=== PATIENT | female | born 1945 | race Caucasian/White ===

== ENCOUNTER → 2019-05-22 | Outpatient (CLI) | payer MEDICARE ==
[~2019-05-22] MED LIST: AMLO25TA PO; AMLO5TAB6 PO; ASPI81TA26 PO; BUPIVACAINE HCL 0.5% 10 ML VIAL As Ordered ONE; ESTR2TAB2 PO; HEPARIN 1,000 UNITS/ML 10ML VIAL (FOR RADIOLOGY& DIALYSIS ONLY) As Ordered ONE; ISOVUE-300 61% 50ML VIAL (Q9967) As Ordered ONE; LIDOCAINE 2% MDV 20 ML VIAL As Ordered ONE; LORA-243 PO; MEDR5TAB3 PO; MIDAZOLAM INJ 2 MG/2 ML VIAL (J2250) As Ordered ONE; PROTAMINE SULF INJ 50 MG/5 ML VIAL (J2720) As Ordered ONE; diphenhydrAMINE INJ 50MG/ML VIAL (J1200) As Ordered ONE; fentaNYL 100 MCG/2 ML INJECTION (J3010) As Ordered ONE; methylPREDNISolone INJ 125 MG/2 ML VIAL (J2930) As Ordered ONE
[2019-05-22 08:36] LABS: HEMATOCRIT 38.4 % (36.0-47.0); HEMOGLOBIN 13.2 g/dl (12.0-15.5); MEAN CORPUSCULAR HEMOGLOBIN 35.5 pg (27.0-33.0); MEAN CORPUSCULAR HGB CONC 34.4 g/dl (32.0-36.5); MEAN CORPUSCULAR VOLUME 103.2 fl (80.0-96.0); PLATELET COUNT, AUTOMATED 209 10^3/uL (150-450); RED BLOOD COUNT 3.72 10^6/uL (4.00-5.40); WHITE BLOOD COUNT 8.9 10^3/uL (4.0-10.0)
[2019-05-22 08:57] LABS: BLOOD UREA NITROGEN 11 MG/DL (7-18); CARBON DIOXIDE LEVEL 27 MEQ/L (21-32); CHLORIDE LEVEL 104 MEQ/L (98-107); CREATININE FOR GFR 0.85 MG/DL (0.55-1.30); GLOMERULAR FILTRATION RATE > 60.0 (>39); GLUCOSE, FASTING 105 MG/DL (70-100); POTASSIUM SERUM 3.5 MEQ/L (3.5-5.1); SODIUM LEVEL 138 MEQ/L (136-145)
[2019-05-22 15:32] VITALS: BP 146/66
--- NOTE | 2019-06-08 09:13 | REPIR ---
DATE OF PROCEDURE: 05/22/2019 ATTENDING SURGEON: Dr. Susan Thompson JAVA XML DEVELOPER: Pamela Burr and [employer] PREOPERATIVE DIAGNOSES: Bilateral lower extremity claudication, history of tobacco use. POSTOPERATIVE DIAGNOSES: Bilateral lower extremity claudication, history of tobacco use. PROCEDURE: Aortogram, iliofemoral angiogram, selective right common femoral artery catheter placement with right lower extremity angiogram, left common iliac artery angioplasty with 7 x 4 balloon, right external iliac artery angioplasty with 7 x 4 balloon, right common femoral artery angioplasty with 5 x 200 balloon, right superficial femoral artery angioplasty with 5 x 200 balloon, right popliteal artery angioplasty with 5 x 200 balloon, bilateral femoral cannulation, right common iliac artery angioplasty and stent with a 10 x 20 Wallstent postdilated with a 7 x 4 balloon. Left common iliac artery angioplasty and stent with a 10 x 39 Wallstent postdilated 7 x 4 balloon, aortic angioplasty with two 7 x 4 balloons, bilateral 6-Barbadian Mynx closure devices. INDICATION: The patient is a 74-year-old female with a history of tobacco use and bilateral lower extremity claudication. The patient will undergo angiography with possible angioplasty, stent and/or atherectomy. Risks, benefits and alternative treatment options were discussed with the patient. ANESTHESIA: Local with sedation with 2 mg Versed, 100 mcg of fentanyl and 40 mL of 2% lidocaine mixed with 0.5% Marcaine. COMPLICATIONS: None. DRAINS: None. SPECIMENS: None. PROCEDURE: The patient was taken to the angiography suite, placed supine on the angiography room table and then prepped and draped in a standard surgical fashion. The left common femoral artery was cannulated with a micropuncture needle. 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 The bilateral common iliac arteries then underwent angioplasty with residual stenosis remaining, after which they were angioplasty and stented with 10 mm stents, postdilated with 7 mm balloons. The right lower extremity showed severe disease in the common femoral, superficial femoral and popliteal arteries and these were angioplastied with a 5 x 200 balloon. Completion aortogram and runoff showed resolution of the stenosis with excellent flow bilaterally. Catheters and wires were removed. The sheaths were removed and bilateral 6-Barbadian Mynx closure devices were placed at the arteriotomy sites with an additional 10 minutes of adjunctive pressure applied for hemostasis. Dressings were then applied. The patient tolerated procedure well. All instrument, sponge, needle counts were correct at the end the case. There were no complications. Dr. Thompson was present for and directed the entire case. The patient was transferred to the holding area and subsequently discharged in stable condition.
== END ==
LOC: M IRPRO 07:43
PROVIDERS: ATTEND Surgery Vascular Surgery
DX: I70.213 Atherosclerosis of native arteries of extremities with intermittent claudication, bilateral legs (principal); I10 Essential (primary) hypertension; K21.9 Gastro-esophageal reflux disease without esophagitis; Z87.891 Personal history of nicotine dependence
CPT/HCPCS: 37221; 37224; 75716; 80048; 85027; C1725; C1760; C1769; C1876; C1887; C1894; J1200; J2250; J2720; J2930; J3010; Q9967

== ENCOUNTER → 2019-07-03 | Outpatient (CLI) | payer MEDICARE ==
[~2019-07-03] MED LIST changes: -BUPIVACAINE HCL 0.5% 10 ML VIAL As Ordered ONE; -HEPARIN 1,000 UNITS/ML 10ML VIAL (FOR RADIOLOGY& DIALYSIS ONLY) As Ordered ONE; -ISOVUE-300 61% 50ML VIAL (Q9967) As Ordered ONE; -LIDOCAINE 2% MDV 20 ML VIAL As Ordered ONE; -MIDAZOLAM INJ 2 MG/2 ML VIAL (J2250) As Ordered ONE; -PROTAMINE SULF INJ 50 MG/5 ML VIAL (J2720) As Ordered ONE; -diphenhydrAMINE INJ 50MG/ML VIAL (J1200) As Ordered ONE; -fentaNYL 100 MCG/2 ML INJECTION (J3010) As Ordered ONE; -methylPREDNISolone INJ 125 MG/2 ML VIAL (J2930) As Ordered ONE
--- NOTE | 2019-07-03 12:37 | REP ---
Bilateral lower extremity arterial Doppler ultrasound: History: Peripheral vascular disease. Findings: Ankle brachial indices are normal measured at 1.0 bilaterally. Mild plaquing is visible bilaterally. No high-grade stenosis or occlusion is observed. Biphasic waveforms are noted throughout the lower extremity arteries bilaterally. Right lower extremity arterial Doppler velocity chart: CF A 164 cm/S Profunda 109 Proximal SFA 108 Mid SFA 134 Distal SFA 97 Popliteal 79 Proximal AT A 61 Tibioperoneal trunk 112 Proximal [employer]ENT 70 Distal [employer] AGENT 66 Distal AT A 83 Left lower extremity arterial Doppler velocity chart: CF A 162 cm/S Profunda 108 Proximal SFA 107 Mid SFA 119 Distal SFA 126 Popliteal 98 Proximal AT A 51 Tibioperoneal trunk 97 Proximal [employer]ENT 98 Distal [employer] AGENT 96 Distal AT A 17 Electronically Signed by Jono Ballard MD 07/03/2019 12:28 P
== END ==
LOC: M RAD 08:44
PROVIDERS: ATTEND Surgery Vascular Surgery
DX: M79.605 Pain in left leg (principal); M79.604 Pain in right leg; I73.9 Peripheral vascular disease, unspecified

== ENCOUNTER → 2023-02-02 | Outpatient (REF) | payer MEDICARE ==
[~2023-02-02] MED LIST changes: +AMLO1TAB24 PO; -AMLO5TAB6 PO; -ESTR2TAB2 PO; +ESTR2TAB3 PO
== END ==
LOC: M LAB REF 12:59
PROVIDERS: ATTEND Internal Medicine Pulmonary Disease
DX: J44.9 Chronic obstructive pulmonary disease, unspecified (principal)